=== PATIENT | female | born 1995 | race Caucasian/White ===

== ENCOUNTER 2019-07-03 05:40 | Day surgery (SDC) | payer OTHER ==
[~2019-07-03] VITALS: Ht 165.1 cm; Wt 59.3 kg
[~2019-07-03 05:40] MED LIST: FISH OIL; INHALER FOR ASTHMA; VITAMIN D3; VITAMINS
[2019-07-03 06:14] VITALS: Ht 165.1 cm; Wt 59.3 kg
[2019-07-03 06:36] VITALS: BP 111/71; PULSE 66; RESP 24
[2019-07-03] MEDS ORDERED: FENTAnyl 50 MCG/ML VIAL ONE (08:14)
[2019-07-03] MEDS ORDERED: MIDAZOLAM 1 MG/ML 2 ML INJ ONE (08:14)
[2019-07-03 08:28] VITALS: BP 123/82; PULSE 76; RESP 20
--- NOTE | 2019-07-03 21:08 | CONS ---
DATE OF ADMISSION: 07/03/2019 DATE OF CONSULTATION: PATIENT NAME: AISHA FREDERICK TYPE OF CONSULTATION: Preoperative gastroenterology Dear Dr. Ventura: HISTORY OF PRESENT ILLNESS: Ms. Aisha Frederick is a 23-year-old female patient who has been referre d to me for further evaluation of chronic heartburn, not responding to therapy with omeprazole. She also complains of burping and sometimes dysphagia. Omeprazole makes her constipated. She has epigas tric pain. No past history of peptic ulcer disease. Not on nonsteroidal anti-inflammatory agents. No history of gallstones or liver disease. Denies any change in the bowel habit or rectal bleeding. No past history of inflammatory bowel disease. Not a hypertensive or diabetic. No heart disease, l michael problem or kidney disease. SOCIAL HISTORY: Nonsmoker. No alcohol abuse. FAMILY HISTORY: No family history of gastrointestinal tract neoplasm. ALLERGIES: 1. PENICILLIN. 2. SULFA. PHYSICAL EXAMINATION: GENERAL: She is 5 feet 5 inches tall and weighs 133 pounds. HEART: Normal heart sounds. LUNGS: Clear. ABDOMEN: Soft, no masses. Normal bowel sounds. NEUROLOGIC: Normal neurological exam. IMPRESSION: 1. Chronic heartburn and burping. 2. History of dysphagia. 3. The patient takes omeprazole without complete relief. 4. She states omeprazole makes her constipated. 5. Epigastric pain. 6. ALLERGY TO PENICILLIN AND SULFA. PLAN: Endoscopy for further evaluation. The procedure and possible complications are well explained to the patient. She understands and cons ents to the procedure. I thank you once again. With warmest personal regards, Dictated By: ALLISON GRIJALVA/ALEXANDRE Conf#: [id number] DID#: [id number]
== END 2019-07-03 10:44 | disposition home or self-care (01) ==
LOC: GIL 05:40
PROVIDERS: ATTEND Internal Medicine Gastroenterology
DX: K44.9 Diaphragmatic hernia without obstruction or gangrene (principal); K21.9 Gastro-esophageal reflux disease without esophagitis
CPT/HCPCS: 43239; 84703; 88305; J2250; J3010; Z7610